=== PATIENT | female | born 1995 | race Caucasian/White ===

== ENCOUNTER 2016-04-27 01:58 | Emergency (ER) | payer BC ==
[2016-04-27] MEDS ORDERED: Ondansetron INJ* 2 MG/ML VIAL IV ONE ×2 (02:10→05:13)
[2016-04-27] MEDS ORDERED: NS 0.9% 1000 ML* 1,000 ML IV ONE (02:10)
--- NOTE | 2016-04-27 02:17 | ED ---
Elvin Medellin Rebecca, scribed for Giovani Ramos MD on 04/27/16 at 0213 . GI/ HPI - HPI Summary HPI Summary: Pt is a 20 y/o F who presents to ED with a CC of V/D. Sx began suddenly at 2230 tonight and have been constant since onset. Reports vomiting 5x and having 3 bouts of diarrhea. Sx aggravated by PO intake, alleviated by nothing. Additionally c/o moderate, dull, diffuse abd pain and mild ROWE. No medication allergies. - History of Current Complaint Chief Complaint: EDNauseaVomitDiarrh Time Seen by Provider: 04/27/16 02:10 Stated Complaint: VOMITING AND DIARRHEA Hx Obtained From: Patient Onset/Duration: Started Hours Ago - 4 hours ago Timing: Constant Severity: Moderate Current Severity: Moderate Pain Intensity: 5 Location of Pain: Diffuse Pain Characteristics: Dull Associated Signs and Symptoms: Positive: Vomiting, Diarrhea, Abdominal Pain - moderate, dull, diffuse, Other: - mild ROWE Aggravating Factor(s): Food, Liquids Alleviating Factor(s): Nothing - Allergy/Home Medications Allergies/Adverse Reactions: Allergies Allergy/AdvReac Type Severity Reaction Status Date / Time No Known Allergies Allergy Verified 04/27/16 02:05 PMH/Surg Hx/FS Hx/Imm Hx Endocrine/Hematology History: Denies: Hx Diabetes Cardiovascular History: Denies: Hx Hypertension Psychiatric History: Reports: Hx Anxiety Infectious Disease History: No Infectious Disease History: Denies: Traveled Outside the [place] in Last 30 Days - Family History Known Family History: Negative: Hypertension, Diabetes - Social History Alcohol Use: Rare Hx Substance Use: No Substance Use Type: Reports: None Hx Tobacco Use: No Smoking Status (MU): Never Smoked Tobacco Review of Systems Positive: Abdominal Pain - moderate, diffuse, Vomiting, Diarrhea Positive: Headache - mild All Other Systems Reviewed And Are Negative: Yes Physical Exam Triage Information Reviewed: Yes Vital Signs On Initial Exam: Initial Vitals Temp Pulse Resp BP Pulse Ox 97.4 F 120 22 127/70 96 04/27/16 02:05 04/27/16 02:05 04/27/16 02:05 04/27/16 02:05 04/27/16 02:05 Vital Signs Reviewed: Yes Appearance: Positive: Well-Appearing, No Pain Distress Skin: Positive: Warm Head/Face: Positive: Normal Head/Face Inspection Eyes: Positive: ZENA ENT: Positive: Hearing grossly normal Neck: Positive: Supple Respiratory/Lung Sounds: Positive: Clear to Auscultation, Breath Sounds Present Cardiovascular: Positive: RRR Abdomen Description: Positive: Nontender, No Organomegaly, Soft Bowel Sounds: Positive: Present Musculoskeletal: Positive: Strength/ROM Intact Neurological: Positive: Sensory/Motor Intact, Alert, Oriented to Person Place, Time Psychiatric: Positive: Affect/Mood Appropriate Diagnostics - Vital Signs Vital Signs Temp Pulse Resp BP Pulse Ox 04/27/16 02:05 97.4 F 120 22 127/70 96 - Laboratory Result Diagrams: 04/27/16 02:30 04/27/16 02:30 Lab Statement: Any lab studies that have been ordered have been reviewed, and results considered in the medical decision making process. Re-Evaluation - Re-Evaluation First Eval Re-Evaluation Time: 04:12 Change: Improved Comment: Pt is feeling significantly better. GIGU Course/Dx - Course Assessment/Plan: Pt is a 20 y/o F with a CC of V/D for the last 5 hours. Additoinally c/o moderate abd pain and mild ROWE. Pt will be D/C to home with a dx of gastroenteritis with a followup with her PCP. - Diagnoses Provider Diagnoses: Gastroenteritis Discharge - Discharge Plan Condition: Stable Disposition: HOME Patient Education Materials: Gastroenteritis (ED) Referrals: Replaced By [facility] [Primary Care Provider] - 3 Days (Follow up with your primary care provider in the next 3 days. ) The documentation as recorded by the Elvin lopez Rebecca accurately reflects the service I personally performed and the decisions made by me, Giovani Ramos MD.
[2016-04-27 02:41] LABS: Hematocrit 44 % (35-47); Hemoglobin 14.7 g/dl (12.0-16.0); Mean Corpuscular HGB Conc 33 g/dl (31-36); Mean Corpuscular Hemoglobin 30 pg (27-31); Mean Corpuscular Volume 89 fL (80-97); Mean Platelet Volume 9 um3 (7.4-10.4); Red Blood Count 4.96 10^6/ul (4.0-5.4); Red Cell Distribution Width 13 % (10.5-15); White Blood Count 12.6 10^3/ul (3.5-10.8)
[2016-04-27 02:44] LABS: Add Diff/Slide Review? Slide Review Added; Comments Flag Yes
[2016-04-27 02:58] LABS: Albumin 4.4 g/dL (3.2-5.2); BUN/Creatinine Ratio 13.3 (8-20); Calcium 9.4 mg/dL (8.6-10.3); EGFR African American 110.6 (>60); Globulin 2.6 g/dL (2-4); Potassium 3.4 mmol/L (3.5-5.0); Total Bilirubin 0.8 mg/dL (0.2-1.0)
[2016-04-27 03:16] LABS: Immature Granulocytes 8 % (0-9); Metamyelocytes % 1 % (0-2); Neutrophil % 81 % (38-83)
[2016-04-27 03:17] LABS: RBC Morphology Normal (Normal)
[2016-04-27] MEDS ORDERED: Ondansetron INJ* 2 MG/ML VIAL ONE (05:14)
[2016-04-27] MEDS ORDERED: Metoclopramide IV* 5 MG/ML 2 ML VIAL IV ONE (05:42)
[2016-04-27 07:43] VITALS: BP 104/52
== END 2016-04-27 08:22 | disposition home or self-care (01) ==
LOC: ED 01:58
DX: K52.9 Noninfective gastroenteritis and colitis, unspecified (principal); R11.10 Vomiting, unspecified; R19.7 Diarrhea, unspecified; R10.9 Unspecified abdominal pain; R51 Headache
CPT/HCPCS: 36415; 80053; 83605; 85025; 96374; 96375; 99282; J2405; J2765